=== PATIENT | female | born 1970 | race Asian ===

== ENCOUNTER 2021-05-13 09:10 | Emergency (ER) | payer OTHER ==
[~2021-05-13] VITALS: Ht 157.5 cm; Wt 53.1 kg
[2021-05-13] MEDS ORDERED: IBUP600 PO (11:12)
== END 2021-05-13 11:39 | disposition home or self-care (01) ==
LOC: ER 09:10
DX: S09.90XA Unspecified injury of head, initial encounter (principal); S16.1XXA Strain of muscle, fascia and tendon at neck level, initial encounter; S50.811A Abrasion of right forearm, initial encounter; V49.9XXA Car occupant (driver) (passenger) injured in unspecified traffic accident, initial encounter
CPT/HCPCS: 70450; 99284-25; A9270